=== PATIENT | female | born 2000 | race Caucasian/White ===

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

== ENCOUNTER 2022-09-23 11:21 | Inpatient (IN) | payer OTHER ==
[~2022-09-23] VITALS: Ht 160 cm; Wt 61.0 kg
[2022-09-23 12:27] LABS: BASOPHILS ABSOLUTE AUTO 0.05 K/mm3 (0.00-0.23); BASOPHILS PERCENT AUTO 1 % (0-2); EOSINOPHILS ABSOLUTE AUTO 0.12 K/mm3 (0.00-0.68); EOSINOPHILS PERCENT AUTO 1 % (0-6); Hematocrit 30.5 % (33.0-51.0); Hemoglobin 10.3 g/dL (11.5-16.0); IMMATURE GRAN ABSOLUTE AUTO 0.07 K/mm3 (0.00-0.10); IMMATURE GRAN PERCENT AUTO 1 % (0-1); LYMPHOCYTES ABSOLUTE AUTO 3.01 K/mm3 (0.84-5.20); LYMPHOCYTES PERCENT AUTO 29 % (21-46); MONOCYTES ABSOLUTE AUTO 0.65 K/mm3 (0.16-1.47); MONOCYTES PERCENT AUTO 6 % (4-13); Mean Corpuscular HGB 29.1 pg (26.0-34.0); Mean Corpuscular HGB Conc 33.8 g/dL (31.5-36.5); Mean Corpuscular Volume 86 fL (80-100); Mean Platelet Volume 11.4 fL (9.1-12.4); NEUTROPHILS ABSOLUTE AUTO 6.48 K/mm3 (1.96-9.15); NEUTROPHILS PERCENT AUTO 62 % (41-73); Platelet Count 277 K/mm3 (150-400); RDW Coefficient Variation 13.9 % (11.7-14.2); RDW Standard Deviation 43.2 fL (35.1-46.3); Red Blood Cell Count 3.54 M/mm3 (3.80-5.20); White Blood Cell Count 10.38 K/mm3 (4.00-11.30)
[2022-09-23 12:42] LABS: Albumin, Blood 2.8 g/dL (3.4-5.0); Albumin/Globulin Ratio 0.7 (0.8-1.8); Bilirubin, Total 0.5 mg/dL (0.1-1.0); Bun/Creatinine Ratio 12.8 (12.0-20.0); Calcium, Blood 8.9 mg/dL (8.5-10.1); Creatinine, Blood 0.78 mg/dL (0.40-1.00); Globulin, Blood 4.1 g/dL (2.2-4.0); Potassium, Blood 4.1 mmol/L (3.5-5.5); Total Protein, Blood 6.9 g/dL (6.4-8.2)
[2022-09-24 01:24] LABS: PO2 Cord - Arterial < 16 mmHg (16-20)
[2022-09-24 01:25] LABS: PCO2 Cord - Arterial 66.2 mmHg (40-50); pH Cord - Arterial 7.16 (7.28-7.35)
[2022-09-24 01:26] LABS: PCO2 Cord - Venous 54.6 mmHg (40-50); PO2 Cord - Venous 18.8 mmHg (28-32); pH Umbilical Cord - Venous 7.21 (7.26-7.35)
[2022-09-24 07:49] LABS: BASOPHILS ABSOLUTE AUTO 0.03 K/mm3 (0.00-0.23); BASOPHILS PERCENT AUTO 0 % (0-2); EOSINOPHILS PERCENT AUTO 0 % (0-6); Hematocrit 28.2 % (33.0-51.0); Hemoglobin 9.4 g/dL (11.5-16.0); IMMATURE GRAN ABSOLUTE AUTO 0.08 K/mm3 (0.00-0.10); IMMATURE GRAN PERCENT AUTO 1 % (0-1); LYMPHOCYTES ABSOLUTE AUTO 0.96 K/mm3 (0.84-5.20); LYMPHOCYTES PERCENT AUTO 6 % (21-46); MONOCYTES ABSOLUTE AUTO 0.33 K/mm3 (0.16-1.47); MONOCYTES PERCENT AUTO 2 % (4-13); Mean Corpuscular HGB 28.8 pg (26.0-34.0); Mean Corpuscular HGB Conc 33.3 g/dL (31.5-36.5); Mean Corpuscular Volume 87 fL (80-100); Mean Platelet Volume 11.6 fL (9.1-12.4); NEUTROPHILS ABSOLUTE AUTO 14.04 K/mm3 (1.96-9.15); NEUTROPHILS PERCENT AUTO 91 % (41-73); Platelet Count 240 K/mm3 (150-400); RDW Standard Deviation 43.5 fL (35.1-46.3); Red Blood Cell Count 3.26 M/mm3 (3.80-5.20); White Blood Cell Count 15.44 K/mm3 (4.00-11.30)
--- NOTE | 2022-09-24 16:25 | NUR ---
LATE NOTE ENTRY: WHEN GETTING PT UP FOR THE FIRST TIME POST-OP, PT GOT TOO HOT IN THE SHOWER AND REQUESTED TO SIT ON THE TOILET. ALEX MURILLO WAS IN THE BATHROOM AND HELPED PT TO TOILET. PT SAT DOWN ON TOILET AND INSTANTLY SAID SHE DIDN'T FEEL WELL, APPEARED PALE. SHE CALLED MYSELF IN FROM THE ROOM MAKING THE BED, IN TO ASSIST. SOON I GOT IN THE BATHROOM, PT SLUMPED DOWN AND FAINTED. EMERGENCY BUTTON WAS PUSHED AND MELANI BARROSO, CHARGE MELANI PUENTE AND BRANDY CONTRERAS CAME IN ROOM TO ASSIST. BY THIS TIME PT STARTED TO GET COLOR BACK AND TALKING WITH STAFF. PT CLEANED UP AND HELPED TO WHEELCHAIR. ASSISTED BACK TO BED AND BACK IN BED TO REST. VITAL SIGNS ARE STABLE. Lady KAM CNM NOTIFIED OF EVENT. WILL CONTINUE TO MONITOR.
--- NOTE | 2022-09-25 22:44 | NUR ---
PATIENT PUMPED 3CC OF COLOSTRUM. PLANS TO SLEEP. WILL REASSESS AT 2400.
[2022-09-26] MEDS ORDERED: Percocet 5-3251 EACH PO (10:47)
[2022-09-26] MEDS ORDERED: IBUP800 PO (10:47)
[2022-09-26] MEDS ORDERED: DOCU100 PO (10:48)
--- NOTE | 2022-09-26 11:13 | NUR ---
YDISCHARGE INSTRUCSTIONS, WRITTEN AND VERBAL, GIVEN TO PT. ANSWERED ALL QUESTIONS AND CONCERNS. WRITTEN PRESCRIPTION HANDED TO PT. IV DISCONTINUED. FOLLOW UP APPOINTMENT SCHEDULED. ALL PERSONAL BELONGINGS RETURNED. PT IS DISCHARGE HOME, DRIVEN BY Julia MON. PT REFUSED FLU AND TDAP VACCINES. STATES SHE WILL GET TDAP VACCINE IN OFFICE. BOTH PT AND S.O. EDUCATED ON IMPORTANCE OF RECEIVING TDAP VACCINE.
== END 2022-09-26 12:00 | disposition home or self-care (01) | DRG 788 ==
LOC: BC 11:21 → OBS 11:21 → BC 11:34
PROVIDERS: Obstetrics & Gynecology; ADMIT Nurse Practitioner Obstetrics & Gynecology
PROC: 10H07YZ Insertion of Other Device into Products of Conception, Via Natural or Artificial Opening (ICD-10-PCS; 2022-09-24)
PROC: 10D00Z1 Extraction of Products of Conception, Low, Open Approach (ICD-10-PCS; principal; 2022-09-24 12:15)
DX: O14.94 Unspecified pre-eclampsia, complicating childbirth (principal); O76 Abnormality in fetal heart rate and rhythm complicating labor and delivery; Z37.0 Single live birth; Z3A.39 39 weeks gestation of pregnancy; Z90.49 Acquired absence of other specified parts of digestive tract; Z79.899 Other long term (current) drug therapy
CPT/HCPCS: 36415; 80053; 82803; 85025; 86850; 86900; 86901; A9270; J0690; J1100; J1885; J2370; J2405; J2590; J2704; J2765; J3010; J7120

== ENCOUNTER → 2024-02-06 | Outpatient (CLI) | payer OTHER ==
[~2024-02-06] MED LIST changes: +DOCU100 PO; +IBUP800 PO; +Percocet 5-3251 EACH PO
[2024-02-06 17:28] LABS: BASOPHILS ABSOLUTE AUTO 0.02 K/mm3 (0.00-0.23); BASOPHILS PERCENT AUTO 0 % (0-2); EOSINOPHILS ABSOLUTE AUTO 0.18 K/mm3 (0.00-0.68); EOSINOPHILS PERCENT AUTO 3 % (0-6); Hematocrit 36.9 % (33.0-51.0); Hemoglobin 12.6 g/dL (11.5-16.0); IMMATURE GRAN ABSOLUTE AUTO 0.02 K/mm3 (0.00-0.10); IMMATURE GRAN PERCENT AUTO 0 % (0-1); LYMPHOCYTES ABSOLUTE AUTO 2.53 K/mm3 (0.84-5.20); LYMPHOCYTES PERCENT AUTO 40 % (21-46); MONOCYTES ABSOLUTE AUTO 0.46 K/mm3 (0.16-1.47); MONOCYTES PERCENT AUTO 7 % (4-13); Mean Corpuscular HGB 30.3 pg (26.0-34.0); Mean Corpuscular HGB Conc 34.1 g/dL (31.5-36.5); Mean Corpuscular Volume 89 fL (80-100); Mean Platelet Volume 10.9 fL (9.1-12.4); NEUTROPHILS ABSOLUTE AUTO 3.18 K/mm3 (1.96-9.15); NEUTROPHILS PERCENT AUTO 50 % (41-73); Platelet Count 257 K/mm3 (150-400); RDW Coefficient Variation 12.3 % (11.7-14.2); RDW Standard Deviation 40.1 fL (35.1-46.3); Red Blood Cell Count 4.16 M/mm3 (3.80-5.20); White Blood Cell Count 6.39 K/mm3 (4.00-11.30)
[2024-02-06 17:37] LABS: Free Thyroxine 1.46 ng/dL (0.70-1.60)
[2024-02-06 17:40] LABS: Albumin, Blood 3.9 g/dL (3.4-5.0); Albumin/Globulin Ratio 1.1 (0.8-1.8); Bilirubin, Total 0.5 mg/dL (0.1-1.0); Bun/Creatinine Ratio 16.7 (12.0-20.0); Calcium, Blood 8.9 mg/dL (8.5-10.1); Creatinine, Blood 0.6 mg/dL (0.40-1.00); Globulin, Blood 3.6 g/dL (2.2-4.0); Potassium, Blood 3.5 mmol/L (3.5-5.5); Thyroid Stimulating Hormone 1.78 uIU/mL (0.360-4.800); Total Protein, Blood 7.5 g/dL (6.4-8.2)
== END | disposition home or self-care (01) ==
LOC: LAB 15:33 → LAB SHORT 15:33
PROVIDERS: Nurse Practitioner Family
DX: N39.0 Urinary tract infection, site not specified (principal); R10.9 Unspecified abdominal pain; R00.2 Palpitations
CPT/HCPCS: 80053; 84439; 84443; 85025; 87077; 87086; 87186